=== PATIENT | female | born 1990 | race Hispanic/Latino ===

== ENCOUNTER 2016-12-30 07:56 | Inpatient (IN) | payer OTHER ==
[2016-12-30] VITALS (7 sets, daily range): BP systolic 119–146; BP diastolic 62–77
[~2016-12-30] VITALS: Ht 111.8 cm; Wt 59.5 kg
--- NOTE | 2016-12-30 06:50 | NUR ---
ORIENTED TO AREA AND CALL SYSTEM. PLAN OF CARE TO OBTAIN URINE FOR ANALYSIS AND DOA, MONITOR FOR UTERINE ACTIVITY AND WELL-BEING, ASSESS FOR RUPTURED MEMBRANES, EXPLAINED TO PATIENT AND AGREED UPON.
--- NOTE | 2016-12-30 07:45 | NUR ---
PATIENT TO OB UNIT ACCOMPANIED BY S.O. C/O SROM AND CONTRACTIONS AT 0500. EDC 01/10/17. PATIENT IS ACHONDROPLASTIC DWARF ABD IS SCHEDULED TO HAVE PRIMARY C -SECTION IN [place] LATER THIS WEEK. DENIES BLEEDING. STATES IS HAVING CONTRACTIONS, FETUS ACTIVE.
--- NOTE | 2016-12-30 08:15 | NUR ---
NO PRESENTING PART IN PELVIS, VERIFIED BY
--- NOTE | 2016-12-30 08:15 | NUR ---
GROSSLY RUPTURED WITH CLEAR FLUID. NO FURTHER TESTING NEEDED.
--- NOTE | 2016-12-30 08:20 | NUR ---
IV INITIATED IN RT WRIST X 1 ATTEMPT WITHOUT DIFFICULTY. LABS DRAWN.
--- NOTE | 2016-12-30 08:25 | NUR ---
ORDERS RECEIVED TO TRANSFER PATIENT TO [facility].
[2016-12-30 08:33] LABS: URINE BILIRUBIN - DIPSTICK NEGATIVE (NEGATIVE); URINE BLOOD DIPSTICK SMALL (NEGATIVE); URINE CLARITY CLEAR; URINE COLOR YELLOW; URINE GLUCOSE - DIPSTICK NEGATIVE (NEGATIVE); URINE KETONE NEGATIVE (NEGATIVE); URINE LEUK ESTERASE NEGATIVE (NEGATIVE); URINE NITRITE - DIPSTICK NEGATIVE (Negative); URINE PROTEIN - DIPSTICK NEGATIVE (NEG-TRACE); URINE SPECIFIC GRAVITY <=1.005; URINE UROBILINOGEN - DIPSTICK 0.2 E.U./dL (0.2)
[2016-12-30 08:36] LABS: BARBITURATES NEGATIVE (NEGATIVE); COCAINE NEGATIVE (NEGATIVE); METHADONE NEGATIVE (NEGATIVE); OXCYCODONE NEGATIVE (NEGATIVE); TETRAHYDROCANNABIONOL NEGATIVE (NEGATIVE); TRICYLIC ANTIDEPRESSANTS NEGATIVE (NEGATIVE); URINE SQUAMOUS EPITHELIAL CELL FEW EPI/hpf (0-FEW)
[2016-12-30] MEDS ORDERED: PRENATAL1 TA1 PO (08:41)
--- NOTE | 2016-12-30 08:55 | NUR ---
REPORT CALLED TO Hermelindo CAMPBELL RN, [facility].
--- NOTE | 2016-12-30 09:30 | NUR ---
PT IS RESTING IN BED S/O AT SIDE. PALPATED PT CONTRACTIONS ARE MILD/MODERATE. PT STATED PAIN IS 8/10 IN ABDOMEN AND BACK. PT DENIES ANY NEEDS AT THIS TIME.
--- NOTE | 2016-12-30 11:14 | NUR ---
[facility] AT BEDSIDE.
[2016-12-30 11:23] LABS: HEMOGLOBIN 13.2 g/dl (12.0-16.0); IMMATURE GRANULOCYTES 0.4 % (0.0-1.0); MEAN CELL VOLUME 83.9 fL CALC (80.0-100.0); MEAN CORPUSCULAR HGB 29.1 pG CALC (26.0-32.0); MEAN CORPUSCULAR HGB CONC 34.7 g/L CALC (32.0-36.0); NEUT# 5.38 thou/uL (2.00-7.15); RED BLOOD COUNT 4.53 mill/uL (4.20-5.60); RED CELL DISTRI WIDTH 12.6 % (11.5-15.5)
--- NOTE | 2016-12-30 11:27 | NUR ---
Discharge instructions given and reviewed. Pt. verbalizes understanding. Discharged in stable condition via Medical Transport to [facility]. accompanied by family.
[2016-12-30 11:32] LABS: ALBUMIN 3.5 g/dL (3.2-5.0); ALKALINE PHOSPHATASE 293 u/l (38-126); ANION GAP 16 (6-22 (CALC)); BILIRUBIN, TOTAL 0.6 mg/dL (0.0-1.4); BUN 12 mg/dL (7-17); BUN/CREATININE RATIO 23 (12-20 (CALC)); CALCIUM 8.9 mg/dL (8.4-10.2); CARBON DIOXIDE 18 mmol/l (22-30); CHLORIDE 108 mmol/l (95-108); CREATININE 0.5 mg/dL (0.5-1.0); GFR > 60 ML/MIN (>=60 (CALC)); GFR FOR AFR.AMER. > 60 ML/MIN (>=60 (CALC)); GLUCOSE 78 mg/dL (65-105); POTASSIUM 3.9 mmol/l (3.5-5.1); SGOT/AST 45 u/l (14-36); SGPT/ALT 74 u/l (9-52); SODIUM 138 mmol/l (137-146); TOTAL PROTEIN 6.8 g/dL (6.3-8.2)
== END 2016-12-30 11:20 | disposition short-term general hospital (02) | DRG 775 ==
LOC: OB 07:56 → OBOP 07:56 → OB 08:20
PROVIDERS: ADMIT Obstetrics & Gynecology; ATTEND Obstetrics & Gynecology
DX: O33.1 Maternal care for disproportion due to generally contracted pelvis (principal); O75.82 Onset (spontaneous) of labor after 37 completed weeks of gestation but before 39 completed weeks gestation, with delivery by (planned) cesarean section; Z3A.37 37 weeks gestation of pregnancy; E34.3 Short stature due to endocrine disorder

== ENCOUNTER 2023-04-29 16:11 | Emergency (ER) | payer SELFPAY ==
[~2023-04-29] VITALS: Ht 111.8 cm; Wt 67.1 kg
[~2023-04-29 16:11] MED LIST: PRENATAL1 TA1 PO
[2023-04-29] MEDS ORDERED: AMOX/K CLAV875 M1 PO ×2 (16:33→16:38)
[2023-04-29] MEDS ORDERED: MECLIZINE 2525 MG PO ×2 (16:33→16:38)
[2023-04-29 16:56] VITALS: BP 124/78
== END 2023-04-29 17:00 | disposition home or self-care (01) | DRG 153 ==
LOC: ED 16:11
DX: H66.91 Otitis media, unspecified, right ear (principal)

== ENCOUNTER 2023-05-17 18:56 | Emergency (ER) | payer SELFPAY ==
[~2023-05-17] VITALS: Ht 111.8 cm; Wt 67.1 kg
[~2023-05-17 18:56] MED LIST changes: +AMOX/K CLAV875 M1 PO; +MECLIZINE 2525 MG PO
[2023-05-17] MEDS ORDERED: AMOX/K CLAV875 M1 PO (22:25)
[2023-05-17 22:40] VITALS: BP 122/72
== END 2023-05-17 23:00 | disposition home or self-care (01) | DRG 149 ==
LOC: ED 18:56
DX: H81.8X1 Other disorders of vestibular function, right ear (principal); H66.93 Otitis media, unspecified, bilateral